=== PATIENT | female | born 1975 | race Caucasian/White ===

== ENCOUNTER 2018-12-02 02:45 | Emergency (ER) | payer BC ==
[~2018-12-02 02:45] MED LIST: ANAPHYLAXIS KIT 1 EA ONE
[2018-12-02] MEDS ORDERED: diphenhydrAMINE 50 MG/ML VIAL IVP ONE (02:50)
[2018-12-02] MEDS ORDERED: NS(*) 0.9% 1000 ML BAG 1,000 ML IV ONE ×2 (02:50→03:45)
[2018-12-02] MEDS ORDERED: methylPREDNIS SUCC 125 MG/2ML IVP ONE (02:50)
[2018-12-02] MEDS ORDERED: FAMOTIDINE(*) 20MG/50ML PREMIX 50 ML IVPB ONE (02:50)
--- NOTE | 2018-12-02 02:50 | ER Report ---
History and Physical Time Seen By MD: 02:43 HPI/ROS CHIEF COMPLAINT: rash, allergic HISTORY OF PRESENT ILLNESS: This is a 43 year old female. She has a history of severe allergic reactions, and workups so far have not revealed the cause. There is some thought that this can be due to stress. She noted some small bumps on arms that have now grown to hives on face, neck, trunk and arms. Uncertain of cause. She did help paint a garage today, but things like this have never caused a problem. No shortness of breath or trouble swallowing. Severe itching. Allergies: Coded Allergies: beeswax (Verified Allergy, Intermediate, 12/02/18) HIVES Home Meds Active Scripts Prednisone (PREDNISONE) 20 Mg Tablet, 60 MG PO QDAY for 4 Days, #12 TAB 0 Refills Prov:UYEN BOJORQUEZ MD 12/02/18 Reviewed Nurses Notes: Yes Constitutional Vital Sign - Last 24 Hours 12/02/18 12/02/18 12/02/18 12/02/18 02:45 02:48 03:00 03:15 Temp 98.2 Pulse 76 69 69 68 Resp 14 B/P (MAP) 154/100 (118) 154/100 128/87 (101) Pulse Ox 95 93 92 96 O2 Delivery Room Air 12/02/18 12/02/18 12/02/18 12/02/18 03:30 03:45 04:00 04:15 Pulse 63 59 ? B/P (MAP) 126/75 (92) 116/66 (83) Pulse Ox 91 91 90 12/02/18 12/02/18 12/02/18 12/02/18 04:30 04:45 04:50 05:00 Pulse 60 ??? 63 B/P (MAP) 108/69 (82) 115/78 (90) Pulse Ox 96 94 94 12/02/18 12/02/18 05:35 05:50 Pulse 66 68 Pulse Ox 94 93 Intake and Output 12/01/18 12/01/18 12/02/18 15:03 23:03 07:03 Intake Total 2050 ml Balance 2050 ml Physical Exam General: Alert, mild distress. Skin: Urticaria, with most severe swelling on lips/face. ENT: No swelling in mouth, tongue, throat. Respiratory: Normal breathing, clear. Medical Decision Making ED Course/Re-evaluation Clinical Indication for ER IV: Hydration, IV Access ED Course Slow improvement with IV NS 1000ml, Solu-Medrol 125mg IV, Pepcid 20mg IV. Given Hydroxyzine 25mg oral dose as she has had problems with benadryl in the past and was told not to use this. She had slow improvement, not compleyte, and a second liter of normal saline, a dose of Ativan 0.5mg IV and a second dose of Hydroxyzine 25mg oral dose. She was able to sleep. The swelling was improving, less redness in face and arms, but not completely gone, estimate about 50% better now, still itching. Still some swelling at the corner of her mouth. Offered the patient further IV medicines or home medicines with Prednisone for the next 5 days as well as continued Pepcid and antihistamines. She was okay with returning home with oral medicines after this conversation. At discharge, the patient is angry and crying and mad that we have not fixed her problem. The nurse asked me to come back in and speak to her. She is mad and said we have not fixed her problem. I explained that she is improved, but not totally better, and with continued medicines including Prednisone, Pepcid and Zyrtec this should continue to get better over the next 24 hours. I did offer to continue longer in the ER and repeat these medicines, also adding an Epinephrine injection. Likely will not completely resolved as well prior to discharge even with these changes and would then need to consider admission versus home treatment. It appears safe to return home at this time, no respiratory problems and no trouble swallowing or swelling in the mouth, but we can certainly do more treatment here. Encouraged her that if stress was causal, or partly causal, that calming down now would be important as well. She definitely needs to see an public health officer for further workup. I ordered epinephrine, and we would re-start an IV with repeat medications, but the patient stormed out of the ER saying she was go ing to [place] where they would be more interested in helping her. It is apparent that she is upset and not willing to listen to what I was offering to do for her at this time. Decision to Disposition Date: Dec 02, 2018 Decision to Disposition Time: 06:16 Depart Departure Latest Vital Signs Vital Signs Date Time Temp Pulse Resp B/P (MAP) Pulse Ox O2 Delivery O2 Flow Rate FiO2 12/02/18 05:50 68 93 12/02/18 05:00 115/78 (90) 12/02/18 02:48 98.2 14 Room Air Impression: Primary Impression: Allergic reaction Condition: Improved Disposition: HOME OR SELF-CARE New Scripts Prednisone (PREDNISONE) 20 Mg Tablet 60 MG PO QDAY for 4 Days, #12 TAB 0 Refills Prov: UYEN BOJORQUEZ MD 12/02/18 Patient Instructions: General Allergic Reaction (ED) Additional Instructions: Take zyrtec 10mg, take one tablet twice a day. Take Prednisone 20mg, 3 tablets once a day for 4 more days starting tomorrow. Take Pepcid 20mg twice a day. Problem Qualifiers Primary Impression: Allergic reaction Encounter type: initial encounter Qualified Codes: T78.40XA - Allergy, unspecified, initial encounter UYEN BOJORQUEZ MD Dec 02, 2018 02:50
[2018-12-02] MEDS ORDERED: hydrOXYzine 25 MG TAB PO ONE ×2 (03:10→03:45)
[2018-12-02] MEDS ORDERED: LORazepam 2 MG/ML VIAL IVP ONE (03:45)
[2018-12-02 05:00] VITALS: BP 115/78
[2018-12-02] MEDS ORDERED: predniSONE 20 MG TAB PO ONE (06:50)
[2018-12-02] MEDS ORDERED: CETIRIZINE HCL 10 MG TAB PO ONE (06:50)
[2018-12-02] MEDS ORDERED: FAMOTIDINE 20 MG TAB PO ONE (06:50)
[2018-12-02] MEDS ORDERED: PRED20TA6 PO (06:55)
[2018-12-02] MEDS ORDERED: EPINEPHrine 0.3 MG SYR IM ONLY ONE (07:15)
== END 2018-12-02 07:15 | disposition left against medical advice (07) ==
LOC: ER 03:13
DX: T78.40XA Allergy, unspecified, initial encounter (principal)
CPT/HCPCS: 96361; 96374; 96375; 99284; J2060; J2930; J7030